=== PATIENT | female | born 1930 | race Caucasian/White ===

== ENCOUNTER 2019-07-09 14:14 | Outpatient (CLI) | payer MEDICARE, OTHER ==
--- NOTE | 2019-07-09 14:35 | ULT ---
ULTRASOUND DOPPLER DUPLEX VENOUS RIGHT LOWER EXTREMITY: DATE: 07/09/2019 HISTORY: 88-year-old female with right lower extremity edema TECHNIQUE: Grayscale, color-flow, and spectral analysis, of major veins of right lower extremity. FINDINGS: There is demonstration of blood flow with normal compressibility, of the right common femoral, profun da femoral, greater saphenous, femoral, popliteal, and posterior tibial, veins. IMPRESSION: Negative. No deep venous thrombosis of right lower extremity.
== END 2019-07-09 14:15 | disposition home or self-care (01) ==
LOC: SCSULT 14:14
PROVIDERS: ATTEND Internal Medicine
DX: R60.0 Localized edema (principal); C44.702 Unspecified malignant neoplasm of skin of right lower limb, including hip